=== PATIENT | male | born 1945 | race Hispanic/Latino ===

== ENCOUNTER 2018-08-15 09:43 | Emergency (ER) | payer MEDICARE ==
[~2018-08-15] VITALS: Ht 172.7 cm; Wt 68.5 kg
[~2018-08-15 09:43] MED LIST: ZITHROMAX TRI-500 MG
[2018-08-15] MEDS ORDERED: ACETAMINOPHEN 325 MG TAB PO ONE (10:00)
[2018-08-15 11:04] VITALS: BP 104/78
== END 2018-08-15 11:09 | disposition home or self-care (01) ==
LOC: ER 09:43
DX: R50.9 Fever, unspecified (principal); R11.2 Nausea with vomiting, unspecified; R19.7 Diarrhea, unspecified; R53.1 Weakness; J06.9 Acute upper respiratory infection, unspecified
CPT/HCPCS: 99283